=== PATIENT | female | born 1975 | race Caucasian/White ===

== ENCOUNTER 2016-08-24 19:34 | Emergency (ER) | payer SELFPAY ==
[~2016-08-24 19:34] MED LIST: ADVAIR 1001 DISK W/D; ADVAIR 2501 DISK W/D IH; ADVAIR HFA 115-12 GM IH; ADVIL200 M1 PO; ALBUTEROL; ALBUTEROL INH 0.3 ML AERO NEB; ALBUTEROL SULF8.5 GM IH; ALBUTEROL0.63 MG/1 IH; ALBUTEROL0.83 MG/ML INH; ALBUTEROL17 GM; ALBUTEROL17 GM INH; AMOXICILLIN500 MG PO; AMOXICILLIN875 MG PO; AVELOX400 MG; BACTRIM DS TAB1 EAC2 PO; BACTRIM DS TABL1 TAB PO; BACTRIM DS1 TA1 PO; BACTRIM DS1 TAB PO; BENADRYL25 MG PO; BENADRYL50 MG PO; BENTYL20 M1 PO; CELEBREX200 MG; CEPHALEXIN500 MG PO; CIPRO500 M1 PO; CIPRO500 M2 PO; CIPRO500 MG PO; CLARITIN10 M2 PO; CLARITIN10 M3 PO; CLARITIN10 MG; COLACE100 MG PO; COMPAZINE10 M PO; CORTISPORIN EAR10 M EACH EAR; CYSTEX TABLET1 EACH PO; DECADRON4 MG PO; DELTASONE10 MG PO; DELTASONE50 MG PO; DEXAMETHASONE2 M1 PO; DICLOFENAC POTA50 M1 PO; DUONEB 2.5-0.5MG3 M1 AERO NEB; EPIPEN0.3 MG/0.3 IM; ERY-TAB250 MG PO; FLEXERIL10 MG PO; FLONASE16 GM NS; FLOVENT13; FLUTICASONE PRO16 GM NS; GABAPENTIN100 MG PO; HYDROCODON-ACE1 EAC7 PO; IBUPROFEN200 M1 PO; IBUPROFEN800 M1 PO; KEFLEX500 M4 PO; KEFLEX500 MG PO; KETOCONAZOLE200 MG; LEVAQUIN250 MG PO; LEVAQUIN500 MG PO; LEXAPRO10 MG; LEXAPRO20 MG; LORTAB 5/500 TA1 TAB PO; MACROBID100 MG/CA1 PO; MORPHINE SULFAT15 M; MUCUS RELIEF C400 MG PO; NEURONTIN100 M1 PO; NO HOME MEDS; NORCO 10/325 TA1 TAB PO; NORCO 5-325 TA1 EACH PO; NORCO 5/325 TAB1 TAB PO; NORCO 5/3251 TAB PO; NORFLEX100 MG PO; ORPHENADRINE C100 M1 PO; PEN-VEE K500 MG PO; PENICILLIN V P500 M1 PO; PERCOCET 5/3251 TAB PO; PERCOCET 7.5-31 EAC1 PO; PHENERGAN W/CO120 M1 PO; PHENERGAN W/CO120 ML PO; PHENERGAN25 M1 PO; PREDNISONE; PREDNISONE10 M1 PO; PREDNISONE10 MG PO; PREDNISONE20 M1 PO; PREDNISONE20 MG; PREDNISONE20 MG PO; PREDNISONE50 MG PO; PROTOPIC60 GM; PROVENTIL HFA6.7 G1 IH; PROVENTIL HFA6.7 GM IH; PROVENTIL17 GM; PROZAC10 M PO; PROZAC20 MG PO; PYRIDIUM100 M2 PO; PYRIDIUM200 M1 PO; PYRIDIUM200 MG PO; ROBITUSSIN-AC5 ML PO; SEPTRA DS TABLE1 TAB PO; SEROQUEL XR150 MG PO; SEROQUEL300 MG PO; SINGULAIR10 M1 PO; SINGULAIR10 MG; SINGULAIR10 MG PO; TRAMADOL HCL50 M2 PO; TRAMADOL HCL50 MG PO; TYLENOL SINUS C PO; TYLENOL WITH C1 EACH PO; TYLENOL325 M1 PO; TYLENOL500 MG PO; ULTRAM50 MG PO; VALIUM2 M1 PO; VENTOLIN HFA18 G2 PO; VENTOLIN HFA18 GM IH; VIBRAMYCIN100 MG PO; VICODIN 5/500 T1 TAB PO; VISTARIL25 MG; ZITHROMAX250 M1 PO; ZITHROMAX250MG Z-PAK PO; ZYRTEC; ZYRTEC10 M1 PO; ZYRTEC10 MG; [UNRECOGNIZED DRUG - OTHER]; [UNRECOGNIZED DRUG - OTHER] PO
[2016-08-24] MEDS ORDERED: IBUPROFEN200 M2 PO (20:14)
[2016-08-24] MEDS ORDERED: TYLENOL EXTRA500 M1 PO (20:14)
== END 2016-08-24 21:36 ==
LOC: EDMED 19:34
DX: R60.0 Localized edema (principal); J45.909 Unspecified asthma, uncomplicated; Z88.5 Allergy status to narcotic agent; F17.210 Nicotine dependence, cigarettes, uncomplicated; Z90.49 Acquired absence of other specified parts of digestive tract